=== PATIENT | male | born 1965 | race Caucasian/White ===

== ENCOUNTER 2025-09-03 14:12 | Emergency (ER) | payer BC, SELFPAY ==
[2025-09-03 14:21] VITALS: BP 129/78
[2025-09-03 15:20] VITALS: BMI 39.4
[2025-09-03 15:46] LABS: Hematocrit 38.3 % (39.0-52.0); Hemoglobin 13.2 g/dL (13.0-18.0); Mean Corp Hgb Conc. 34.5 g/dL (33.0-37.0); Mean Corpuscular Volume 93.0 fL (80.0-94.0); Nucleated Red Blood Cells % 0 % (-); Platelet Count 169 10^3/uL (130-400); Red Cell Dist. Width 12.2 % (11.5-14.5)
[2025-09-03 15:52] LABS: ALT (SGPT) 29 U/L (0-50); AST (SGOT) 32 U/L (17-59); Albumin 4.7 g/dl (3.5-5.0); Alkaline Phosphatase 59 U/L (38-126); Blood Urea Nitrogen 20 mg/dl (9-20); Calcium 9.4 mg/dl (8.4-10.2); Carbon Dioxide 24 mmol/L (22-30); Chloride 103 mmol/L (98-107); Estimated Creatinine Clearance 108 ml/min; Glucose 107 mg/dl (70-99); Lipase 105 U/L (23-300); Potassium 4.4 mmol/L (3.5-5.1); Sodium 136 mmol/L (135-145); Total Protein 7.5 g/dl (6.3-8.2); eGFR > 60.00
--- NOTE | 2025-09-03 17:43 | ED.GENMED ---
History of Present Illness
General
Chief Complaint: Abdominal Pain
Time Seen by Provider: 09/03/25 15:42
History of Present Illness
History of Present Illness:
Wade is a 60-year-old male with past medical history of hypertension and hyperlipidemia who presents complaining of right lower quadrant pain that is a dull ache yesterday and intensified over the last 24 hours. Denies any associated nausea or
vomiting. Denies fevers or chills. Reports that pain began as a dull ache and is now sharp and severe. Constant. Worsened by movement. Last colonoscopy was several years ago and reportedly only had 2 small polyps. Told to follow-up in 7 years.
Phy Exam
General Physical Exam
General Presentation: well appearing and no apparent distress
General Skin: warm and dry
General Habitus: normal
General Mental: alert
General Hydration: appears well hydrated
ENT Exam
ENT Exam: EOMI, pharynx normal, neck supple and normocephalic
Eye Exam
Eye Exam: PERRL, cornea clear and conjunctiva normal
Cardiovascular Exam
Cardiovascular Exam: regular rate/rhythm, no edema, no murmur and normal peripheral pulses
Pulmonary Exam
Pulmonary Exam: lungs clear, no respiratory distress, no rales, no crackles, no rhonchi, no stridor, no wheezing and no cough
Gastrointestinal Exam
Gastrointestinal Exam: normal bowel sounds, non tender, soft, no organomegaly, no pulsatile mass and non distended
Palpation: right lower quadrant: Moderate tenderness (McBurney's point tenderness)
Neurological Exam
Neurological Exam: alert, oriented x3, no motor deficits and speech normal
Musculoskeletal Exam
Musculoskeletal Exam: full ROM and no edema
Skin Exam
Skin Exam: normal color, warm/dry, no rash and no petechia
Psychiatric Exam
Psychiatric Exam: normal mood/affect
Course
Orders/Labs/Results
Orders:
Orders
09/03/25 15:28
Comprehensive Metabolic Panel Urgent
Lipase Urgent
09/03/25 15:29
Complete Blood Count/With Diff Urgent
09/03/25 16:13
CT Abd/pelvis W Iv Cont Urgent
Comment:
Reason For Exam: RLQ pain
09/03/25 18:15
Urinalysis Reflex To Culture Urgent
Date Specimen was Collected: 09/03/25
Time Specimen was Collected: 18:14
Urine Microscopic Reflex Cult Urgent
Abnormal Lab Results
09/03/25 09/03/25 09/03/25
15 15:29 18:15
RBC 4.12 L 10^6/uL
(4.70-6.10)
Hct 38.3 L %
(39.0-52.0)
MCH 32.0 H pg
(27.0-31.0)
MPV 11.4 H fL
(7.4-10.4)
Absolute Monos (auto) 0.9 H 10^3/uL
(0.1-0.6)
Lymphocytes % 16.1 L %
(20.5-51.1)
Monocytes % 11.6 H %
(1.7-9.3)
Glucose 107 H mg/dl
(70-99)
Urine Bacteria (Reflex) Few A
(Negative)
Urine Albumin (Reflex) 1+ A
(Neg - Trace)
09/03/25 15:29
09/03/25 15:28
Vital Signs
Initial and Last Documented VS:
Initial Vital Signs
Temp Pulse Resp BP Pulse Ox
36.6 C 102 16 129/78 98
09/03/25 14:21 09/03/25 14:21 09/03/25 14:21 09/03/25 14:21 09/03/25 14:21
Last Documented Vital Signs
Temp Pulse Resp BP Pulse Ox
36.6 C 84 16 129/74 95
09/03/25 14:21 09/03/25 18:19 09/03/25 14:21 09/03/25 18:19 09/03/25 18:19
MDM/Problems Addressed
Differential Diagnosis Includes:
CBC obtained and reviewed. No leukocytosis. BMP within normal limits with no electrolyte derangements. No elevation in LFTs. CT scan completed and shows mild epiploic appendagitis in the right lower quadrant. No evidence of perforation or
abscess formation. Incidentally shows moderate circumferential wall thickening of the distal rectum and anus clinical correlation recommended for possible mural mass such as rectal carcinoma or proctitis. Patient denies any rectal pain or
difficulty having a bowel movement. No changes in bowel movement. Stools have been normal. Recommended that he follow-up with GI and colorectal regarding this finding.
Discussed supportive care for appendagitis. Should he fail outpatient management with NSAIDs and rest return precautions were discussed.
*Pulse Oximetry
SaO2: 95
Oxygen Mode of Delivery: Room air
Patient hypoxic: no
*Critical Care Note
Total Time (30-74mins, 75-104mins- exclusive of procedures): Not Applicable
ED Attending Note
-
Portions of this chart may have been created with voice recognition software.� Occasional wrong word or��sound alike� substitutions may have occurred due to the inherent limitations of voice recognition software.
Discharge Plan
Departure
Patient Disposition: Home (Routine Discharge)
Date of Disposition: 09/03/25
Time of Disposition: 19:10
Patient with high blood pressure during this ER visit?: No
Discharge Problem:
Epiploic appendagitis, Abdominal pain
Instructions: Abdominal Pain
Prescriptions:
No Action
levothyroxine 137 mcg tablet
137 mcg PO DAILY
cetirizine [Zyrtec] 10 mg Tablet
10 mg PO DAILY
Theragen Tablet
1 tab PO DAILY
lisinopril 10 mg tablet
10 mg PO DAILY
fluticasone propionate [Flonase] 50 mcg/actuation [place],Suspension
1 spray INTRANASAL DAILY
rosuvastatin 10 mg tablet
20 mg PO DAILY
Referrals:
Luis Antonio[facility] [Provider Group]
Tj Wheeler CRNP [Family Provider, [facility]]
Activity Restrictions/Additional Instructions:
You should take Motrin for your abdominal pain. Pain may last for up to a week. Please follow-up with your primary care doctor regarding this. An incidental finding of thickening of your distal rectum and anus were found on CT. You should
follow-up with GI and colorectal surgery regarding these findings. Copy of your CT report has been given to you. Return to the ER for any worsening of your abdominal pain or persistent nausea and vomiting.
Interventions
Interventions:
*Risk Screen - Suicide Last Done: 09/03/25 14:23
*General Assessment Last Done: 09/03/25 15:31
*Neglect/Abuse Screening Last Done: 09/03/25 14:23
*ED COVID-19 Vaccine History Last Done: 09/03/25 15:31
*ED Influenza Vaccine History Last Done: 09/03/25 15:31
[facility] Fall Risk Assessment Tool Last Done: 09/03/25 15:31
PM-Dliapn-Peflvbxdtb Assessment Last Done: 09/03/25 15:32
Discharge Date and Time
Print Language: EGYPTIAN
[2025-09-03 18:19] VITALS: BP 129/74
[2025-09-03 18:36] LABS: Urine Character Clear (Clear)
[2025-09-03 19:13] LABS: Urine Red Blood Cell 0-2 /HPF (0-2); Urine Squamous Cell 0-2 /LPF (Few); Urine White Cell 0-2 /HPF (0-5)
[2025-09-03 19:33] VITALS: BP 126/74
== END 2025-09-03 19:37 | disposition home or self-care (01) ==
LOC: EMR 14:12
PROVIDERS: Surgery Trauma Surgery; EMERGENCY PHYSICIAN Student in an Organized Health Care Education/Training Program; FAMILY PHYSICIAN Nurse Practitioner Family
DX: K63.89 Other specified diseases of intestine (principal); I10 Essential (primary) hypertension; E78.5 Hyperlipidemia, unspecified
CPT/HCPCS: 99284; 74177; 80053; 81003; 81015; 83690; 85025; Q9967